=== PATIENT | male | born 1955 | race Caucasian/White ===

== ENCOUNTER 2021-05-12 15:02 | Emergency (ER) | payer SELFPAY ==
[~2021-05-12] VITALS: Ht 177.8 cm; Wt 85.0 kg
[2021-05-13 18:33] VITALS: BP 137/82
== END 2021-05-13 18:35 | disposition home or self-care (01) ==
LOC: ER 15:02
DX: R68.89 Other general symptoms and signs (principal)
CPT/HCPCS: 99283